=== PATIENT | female | born 1945 ===

== ENCOUNTER 2018-10-15 08:22 | Day surgery (SDC) | payer MEDICARE ==
[~2018-10-15] VITALS: Ht 149.9 cm; Wt 79.0 kg
[2018-10-15] MEDS ORDERED: SODIUM CHLORIDE 0.9% 1,000 ML IV SCH (09:00)
[2018-10-15 09:01] VITALS: BP 130/68
[2018-10-15] MEDS ORDERED: BLOOD PRESSURE (09:51)
[2018-10-15] MEDS ORDERED: [UNRECOGNIZED DRUG - OTHER] (09:51)
[2018-10-15] MEDS ORDERED: THYROID (09:51)
[2018-10-15] MEDS ORDERED: PROTAMINE SULFATE 10 MG/ML, 5ML ONE (10:44)
[2018-10-15] MEDS ORDERED: BUPIVACAINE/PF 0.5% ONE (10:44)
[2018-10-15] MEDS ORDERED: THROMBIN 5,000 UNIT VIAL TP ONE (10:45)
[2018-10-15] MEDS ORDERED: HEPARIN 1,000 UNITS/ML, 10ML ONE (10:45)
[2018-10-15] MEDS ORDERED: FENTANYL PF 100 MCG/2ML ONE (11:41)
[2018-10-15] MEDS ORDERED: DEXAMETHASONE 4 MG/ML, 1ML ONE (11:45)
[2018-10-15] MEDS ORDERED: ONDANSETRON 2MG/ML, 2ML ONE (11:45)
[2018-10-15] MEDS ORDERED: CEFAZOLIN 1,000 MG ONE (11:45)
[2018-10-15] MEDS ORDERED: PROPOFOL 10 MG/ML, 20ML ONE (11:45)
[2018-10-15] MEDS ORDERED: ACETAMINOPHEN 325 MG TABLET PO PRN (12:00)
[2018-10-15] MEDS ORDERED: ALBUTEROL SULFATE 2.5 MG/3 ML NPPB PRN (12:00)
[2018-10-15] MEDS ORDERED: MEPERIDINE/PF 25MG/0.5ML IVPush PRN (12:00)
[2018-10-15] MEDS ORDERED: PROMETHAZINE 25 MG/ML, 1ML IV PRN (12:00)
[2018-10-15] MEDS ORDERED: DIAZEPAM 5 MG/ML, 2ML IVPush PRN (12:00)
[2018-10-15] MEDS ORDERED: FENTANYL PF 100 MCG/2ML IV PRN (12:00)
[2018-10-15] MEDS ORDERED: LABETALOL 5MG/ML, 20ML IV PRN (12:00)
[2018-10-15] MEDS ORDERED: OXYcodone 5 MG/5 ML ORAL.SOL UDC PO PRN (12:00)
[2018-10-15] MEDS ORDERED: hydrALAzine 20 MG/ML, 1ML IV PRN (12:00)
[2018-10-15] MEDS ORDERED: HYDROmorphone 2 MG/ML, 1ML IVPush PRN (12:00)
[2018-10-15] MEDS ORDERED: OXYcodone 5 MG/5 ML ORAL.SOL UDC ONE (12:25)
== END 2018-10-15 13:50 | disposition home or self-care (01) ==
LOC: OUT 08:22
PROVIDERS: ATTEND Surgery Vascular Surgery
DX: I77.0 Arteriovenous fistula, acquired (principal); C90.00 Multiple myeloma not having achieved remission; I10 Essential (primary) hypertension; Z79.890 Hormone replacement therapy; Z79.891 Long term (current) use of opiate analgesic; Z79.899 Other long term (current) drug therapy
CPT/HCPCS: 36415; 37607; 80047; 88304; 93005; J0690; J1100; J1644; J2405; J2704; J2720; J3010